=== PATIENT | female | born 1980 | race Caucasian/White ===

== ENCOUNTER 2016-12-08 18:23 | Emergency (ER) | payer OTHER, MEDICAID ==
[2016-12-08 19:18] VITALS: BP 122/71
[2016-12-08] MEDS ORDERED: Sodium Chloride 0.9% 1,000 ML IV ONE (19:31)
--- NOTE | 2016-12-08 19:38 | ED Physician Chart ---
Chief Complaint/HPI - Patient Information Date Seen:: 12/08/16 Time Seen:: 19:32 Chief Complaint:: feels weak History of Present Illness:: pt has not been feeling well for a few days...she says feels worse today. she now co she feels like she is goign to pass out. she has had GASPAR and chest discomfort. no cough says shes had fever 102 over last 2 days. pos clear rhinitis. sinus frontal pressure. nop abdp. no back p. LMP recent./wnl. no vag dc. denies risk of being gravid. pt complains of dramatic complaints (but interestingly she is also yawning frequently during the exam) no rodolfo hx except for htn for which pt is not taking her meds recently Allergies:: Allergies Allergy/AdvReac Type Severity Reaction Status Date / Time No Known Allergies Allergy Verified 12/08/16 19:14 Vitals:: Vital Signs - 8 hr 12/08/16 19:18 Temp 99.5 F HR 94 RR 17 BP 122/71 O2 Sat % 97 Historian:: Patient Review of Systems - Review of Systems General/Constitutional: No fever, No chills, No weight loss, No weakness, No diaphoresis, No edema, No loss of appetite Skin: No skin lesions, No rash, No bruising Head: Headache, No light-headedness Eyes: No loss of vision, No pain, No diplopia ENT: No earache, No nasal drainage, No sore throat, No tinnitus Neck: No neck pain, No swelling, No thyromegaly, No stiffness, No mass noted Cardio Vascular: Chest pain, No palpitations, No PND, No orthopnea, No edema Pulmonary: No SOB, No cough, No sputum, No wheezing GI: Nausea, No vomiting, No diarrhea, No pain, No melena, No hematochezia, No constipation, No hematemesis G/U: No dysuria, No frequency, No hematuria Musculoskeletal: No bone or joint pain, No back pain, No muscle pain Endocrine: No polyuria, No polydipsia Psychiatric: No prior psych history, No depression, No anxiety, No suicidal ideation Hematopoietic: No bruising, No lymphadenopathy Allergic/Immuno: No urticaria, No angioedema Neurological: No syncope, No focal symptoms, Weakness, No weakness, No paresthesia, No headache, No seizure, Dizziness, No dizziness, No confusion, No vertigo Past Medical History - Past Medical History Past Medical History: HTN Social History: Non Smoker Medication: Reviewed Family Medical History - Family Member Mother Hx Family Diabetes: Yes Other Medical History: liver CA Physical Exam - Physical Examination General/Constitutional: Awake, Well-developed, well-nourished, Alert, No distress, GCS 15, Non-toxic appearing, Ambulatory Other Gen/Cons comments:: obese female in discomfort. alert. nrml neuro exam. not dyspneic. eomi,perrla. no nasl dc. throat patent. some enlarged tonsills but no red no pus no occlusion. neck supple. lungs clear cv rrr no m. Head: Atraumatic Eyes: Lids, conjuctiva normal, PERRL, EOMI Skin: Nl inspection, No rash, No skin lesions, No ecchymosis, Well hydrated, No lymphadenopathy ENMT: External ears, nose nl, Nasal exam nl, Lips, teeth, gums nl Neck: Nontender, Full ROM w/o pain, No JVD, No nuchal rigidity, No bruit, No mass, No stridor Respiratory: Nl effort/Exclusion, Clear to Auscultation, No Wheeze/Rhonchi/Rales Cardio Vascular: RRR, No murmur, gallop, rubs, NL S1 S2 GI: No tenderness/rebounding/guarding, No organomegaly, No hernia, Normal BS's, Nondistended, No mass/bruits, No McBurney tenderness : No CVA tenderness Extremities: No tenderness or effusion, Full ROM, normal strength in all extremities, No edema, Normal digits & nails Neuro/Psych: Alert/oriented, DTR's symmetric, Normal sensory exam, Normal motor strength, Mood normal, Normal gait, No focal deficits Other Neuro/Psych comments:: very anxious...at times...minutes later she is yawning.. Misc: normal gait, Normal back, No paraspinal tenderness Labs/Radiology/EKG Results - Lab Results Results: Laboratory Tests 12/08/16 12/08/16 12/08/16 19:30 19:30 20:15 WBC 8.8 RBC 5.17 H Hgb 13.7 Hct 40.9 MCV 79.0 L MCH 26.4 L MCHC Differential 33.4 RDW 14.1 Plt Count 287 MPV 8.7 Band Neutrophils % 3 Neutrophils (Manual) 86 H Lymphocytes 4 L Monocytes 7 Platelet Estimate ADEQUATE Platelet Morphology NORMAL Microcytosis 1+ RBC Morph Micro Appear ABNORMAL Sodium Potassium Chloride Carbon Dioxide Anion Gap BUN Creatinine Est GFR ( Amer) Est GFR (Non-Af Amer) BUN/Creatinine Ratio Glucose Calcium Total Bilirubin AST ALT Alkaline Phosphatase Troponin I Total Protein Albumin Globulin Albumin/Globulin Ratio Urine Source CLEAN C Urine Color YELLOW Urine Clarity HAZY Urine pH 6.0 Ur Specific [place] 1.025 Urine Protein 30 H Urine Glucose (UA) NEGATIVE Urine Ketones NEGATIVE Urine Blood LARGE H Urine Nitrate NEGATIVE Urine Bilirubin NEGATIVE Urine Urobilinogen 1.0 Ur Leukocyte Esterase NEGATIVE Urine RBC 25-50 H Urine WBC 0-2 Ur Epithelial Cells MODERATE Urine Bacteria FEW Urine Test NEGATIVE 12/08/16 12/08/16 20:15 20:15 WBC RBC Hgb Hct MCV MCH MCHC Differential RDW Plt Count MPV Band Neutrophils % Neutrophils (Manual) Lymphocytes Monocytes Platelet Estimate Platelet Morphology Microcytosis RBC Morph Micro Appear Sodium 134 L Potassium 3.6 Chloride 99 Carbon Dioxide 27.5 Anion Gap 11.1 BUN 12 Creatinine 0.7 Est GFR ( Amer) > 60.0 Est GFR (Non-Af Amer) > 60.0 BUN/Creatinine Ratio 17.1 Glucose 122 H Calcium 9.4 Total Bilirubin 0.3 AST 35 ALT 47 Alkaline Phosphatase 44 Troponin I < 0.01 L Total Protein 8.3 Albumin 4.6 Globulin 3.7 Albumin/Globulin Ratio 1.2 Urine Source Urine Color Urine Clarity Urine pH Ur Specific [place] Urine Protein Urine Glucose (UA) Urine Ketones Urine Blood Urine Nitrate Urine Bilirubin Urine Urobilinogen Ur Leukocyte Esterase Urine RBC Urine WBC Ur Epithelial Cells Urine Bacteria Urine Test - Radiology Results Results: ct head nad cxr nad - EKG Interpretations EKG Time:: 21:55 Rhythm: nsr [place]: 42 Rate: 85 Comments:: wnl ED Septic Shock - . Is Septic Shock (SBP<90, OR Lactate>4 mmol\L) present?: No - <6hrs of presentation: Vital Signs: Vital Signs - 8 hr 12/08/16 19:18 Temp 99.5 F HR 94 RR 17 BP 122/71 O2 Sat % 97 Reassessment (Disposition) - Reassessment Reassessment:: results reviewed w pt ..plan dw pt and family. pt feels better. Reassessment Condition:: Improved - Diagnosis Diagnosis:: 1 sinusitus 2 poss viral syndrome - Aftercare/Follow up Instructions Aftercare/Follow-Up Instructions:: Counseled pt & family regarding lab results/ diagnosis & need follow up Medication Prescribed:: rx zpack and zofran pt to fu w pmd tmrw for rechk. stay w family tonight. return if worse. - Patient Disposition Discharge/Transfer:: Home Condition at Disposition:: Improved
[2016-12-08 20:05] LABS: URINE BILIRUBIN NEGATIVE (NEGATIVE); URINE BLOOD LARGE (NEGATIVE); URINE COLOR YELLOW; URINE GLUCOSE (UA) NEGATIVE (NEGATIVE); URINE KETONE NEGATIVE (NEGATIVE); URINE PROTEIN 30 mg/dL (NEGATIVE)
[2016-12-08 20:06] LABS: URINE BACTERIA FEW /hpf (NONE SEEN); URINE EPITHELIAL CELLS MODERATE /lpf (FEW); URINE RBC 25-50 /hpf (0-5); URINE WBC 0-2 /hpf (0-5)
[2016-12-08 20:37] LABS: HEMATOCRIT 40.9 % (35.0-45.0); HEMOGLOBIN 13.7 gm/dL (11.7-15.5); MEAN CORPUSCULAR HEMOGLOBIN 26.4 pg (27.0-31.0); MEAN CORPUSCULAR HGB CONC 33.4 pg (28.0-36.0); MEAN PLATELET VOLUME 8.7 fl; PLATELET COUNT 287 Th/cmm (150-400); RED BLOOD COUNT 5.17 Mil/cmm (3.80-5.10); RED CELL DISTRIBUTION WIDTH 14.1 % (11.5-20.0); WHITE BLOOD COUNT 8.8 Th/cmm (4.8-10.8)
[2016-12-08 20:58] LABS: ALB/GLOB RATIO 1.2 (1.0-1.8); ALKALINE PHOSPHATASE 44 U/L (34-104); ANION GAP 11.1 (7.0-16.0); BILIRUBIN,TOTAL 0.3 mg/dL (0.3-1.0); BUN - UREA NITROGEN 12 mg/dL (7-25); BUN/CREATININE RATIO 17.1; CALCIUM SERUM 9.4 mg/dL (8.6-10.3); CARBON DIOXIDE 27.5 mEq/L (21.0-31.0); CHLORIDE 99 mEq/L (98-107); CREATININE - SERUM 0.7 mg/dL (0.6-1.2); GLUCOSE 122 mg/dL (70-105); POTASSIUM SERUM 3.6 mEq/L (3.5-5.1); SGOT 35 U/L (13-39); SGPT/ALT 47 U/L (7-52); SODIUM SERUM 134 mEq/L (136-145)
[2016-12-08 21:18] LABS: NEUTROPHILS 86 % (40-80); TOTAL CELLS COUNTED 100
[2016-12-08 21:19] LABS: BAND NEUTROPHILE 3 % (0-10); MICROCYTOSIS 1+; PLATELET ESTIMATE ADEQUATE (NORMAL); PLATELET MORPHOLOGY NORMAL (NORMAL)
--- NOTE | 2016-12-09 11:57 | Diagnostic Imaging Report ---
Chest x-ray single view History: Pain The heart size is normal. No focal pulmonary parenchymal processes. No hilar or mediastinal abnormalities. Impression: No acute abnormalities
--- NOTE | 2016-12-09 12:55 | Diagnostic Imaging Report ---
CT scan of the brain without contrast History: Headache Total DLP equals 582 CTDI equals 33.9 Axial sections were obtained from the base of the skull to the vertex. There is a normal ventricular system size. No focal parenchymal lesions are seen. No evidence of any mass effect or shift of midline structures. No extra-axial masses or abnormal fluid collections. Minimal mucosal thickening seen within the ethmoid sinuses. Impression: 1. No acute intracerebral abnormalities 2. Minimal mucosal thickening within the ethmoid sinuses
== END 2016-12-08 23:00 | disposition home or self-care (01) ==
LOC: ER 18:23
DX: J32.9 Chronic sinusitis, unspecified (principal); I10 Essential (primary) hypertension
CPT/HCPCS: 99285; 96374; 93005; 71010; 70450; 84484; 36415; 85007; 85027; 81001; 81025; 80053; 87040 ×2; J2405; J7030; Z7610